=== PATIENT | male | born 1975 | race Asian ===

== ENCOUNTER 2017-11-08 07:17 | Day surgery (SDC) | payer OTHER ==
[2017-11-03 12:12] VITALS: BMI 31.7
--- NOTE | 2017-11-08 00:51 | HP ---
HISTORY OF PRESENT ILLNESS: Mr. Schultz presents for evaluation of roughly 2 months for left upper ext remity C6 and C7 pain with numbness and left-hand clumsiness. He has had injections with Dr. Hou he re in [place], which do help for a few days, but then the pain returned. MRI from outside facility re veals left-sided disk osteophyte complex noted at C5-C6 and C6-C7 causing severe foraminal stenosis, . He has reached a point today, where he is ready for surgery. PAST MEDICAL HISTORY: Significant for seasonal allergies, asthma, anxiety, and gastroesophageal refl ux disease. CURRENT MEDICATIONS: Celebrex, Flonase, Zyrtec, Singulair, Robaxin, Flexeril, tramadol, duloxetine, omeprazole. ALLERGIES: No known drug allergies. PAST SURGICAL HISTORY: Lithotripsy, unspecified ENT surgery, and a vasectomy. PHYSICAL EXAMINATION: Patient is alert and oriented x3. Gait is normal, no ataxia. 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 He does have a positive left spurlings man euver as well. ASSESSMENT: Cervical radiculopathy. PLAN: Dr. Arreaga met with the patient, reviewed imaging and advocated for a 2-level ACDF spanning C5 to C7. He explained to the patient the risks, benefits, and alternatives to the procedure. The emi ent expressed understanding and would like to move forward with surgery as discussed. I do believe t he patient is mentally competent and capable of making medical decisions for himself and we will move forward with surgery as planned. This is Dinh Dickson PA-C dictating for Dr. Arreaga.
[2017-11-08] MEDS ORDERED: CEFAZOLIN/Water 2 GM/20 ML SYRINGE ONE ×2 (07:53→13:16)
[2017-11-08] MEDS ORDERED: Thrombin 5000 UNITS/5 ML VIAL ONE (08:37)
[2017-11-08] MEDS ORDERED: Midazolam HCl 2 mg/2 ml Vial ONE (09:22)
[2017-11-08] MEDS ORDERED: Fentanyl 250 MCG/5 ML VIAL ONE (09:28)
--- NOTE | 2017-11-08 11:09 | OP ---
DATE OF PROCEDURE: 11/08/2017 SURGEON: Fili Arreaga M.D. COST ACCOUNTING ANALYST: Roberto Dickson PA-C. INDICATION: Pain. PREOPERATIVE DIAGNOSIS: Cervical radiculopathy. PROCEDURE: Anterior cervical discectomy and fusion at C5-C7. ANESTHESIA: General. PROCEDURE IN DETAIL: The patient was brought into the operating room and placed under general anesth esia. He was placed on the table in a supine position. A transverse incision was planned over the l ateral aspect of the neck on the right. After prepping and draping and after an appropriate operativ e pause, the incision was created. The underlying platysma muscles identified and incised. A blunt tissue plane anterior to the sternocleidomastoid muscle was used to gain access to the prevertebral s pace. Self-retaining retractors were placed in the wound for optimal exposure. After confirming the appropriate levels, an annulotomy was performed in the C6-7 disk space. All disk material as well a s anterior and posterior osteophytes were removed. After complete decompression, a 7 mm lordotic PEE K cage packed with allograft and autograft material was placed within the interbody space. We then r edirected our attention to the level above at C5-6 where again an annulotomy was performed. All disk material as well as anterior and posterior osteophytes were removed. After complete decompression, a 7 mm lordotic PEEK cage packed with allograft and autograft material was placed within the interbod y space. An anterior cervical plate was then fashioned to the front of the spine and secured with a total of 6 screws. Midline and lateral structures were inspected and found to be free from significa nt trauma. The wound was irrigated. Hemostasis was maintained throughout. The wound was then close d in anatomic layers and a pressure dressing was applied. There were no known procedural complicatio ns.
[2017-11-08] MEDS ORDERED: Tamsulosin HCl 0.4 MG CAP ONE (11:15)
[2017-11-08] MEDS ORDERED: Morphine 2 MG/ML SYRINGE ONE (12:12)
[2017-11-08] MEDS ORDERED: Acetaminophen/Codeine 30-300mg Tablet ONE (12:34)
[2017-11-08] MEDS ORDERED: Lidocaine 1% PF 5 ML VIAL ONE (15:58)
[2017-11-08] MEDS ORDERED: Glycopyrrolate 0.2 MG/ML 5 ML SYRINGE ONE (15:58)
[2017-11-08] MEDS ORDERED: Propofol 200 MG/20 ML VIAL ONE (15:58)
[2017-11-08] MEDS ORDERED: Dexamethasone 20 MG/5 ML VIAL ONE (15:58)
[2017-11-08] MEDS ORDERED: ePHEDrine/0.9% NaCl/PF SYRINGE 50 mg/10 ml ONE (15:58)
[2017-11-08] MEDS ORDERED: PHENYLEPHRINE-NS 100 MCG/ML 10 ML SYRINGE ONE (15:58)
[2017-11-08] MEDS ORDERED: Ondansetron HCl/PF 4 MG/2 ML Vial ONE (15:58)
== END 2017-11-08 13:40 | disposition home or self-care (01) ==
LOC: SDC 07:17
PROVIDERS: ATTEND Neurological Surgery
DX: M54.12 Radiculopathy, cervical region (principal); J45.909 Unspecified asthma, uncomplicated; K21.9 Gastro-esophageal reflux disease without esophagitis; F41.9 Anxiety disorder, unspecified; F17.200 Nicotine dependence, unspecified, uncomplicated; F32.9 Major depressive disorder, single episode, unspecified; Z99.89 Dependence on other enabling machines and devices; Z79.51 Long term (current) use of inhaled steroids; Z79.899 Other long term (current) drug therapy; Z98.52 Vasectomy status; Z98.890 Other specified postprocedural states; Z87.442 Personal history of urinary calculi
CPT/HCPCS: 76001; 96374; C1713; J1100; J2001; J2250; J2270; J2405; J2704; J3010